=== PATIENT | male | born 1985 | race Caucasian/White ===

== ENCOUNTER 2017-06-17 21:50 | Observation (INO) | payer BC, OTHER ==
[~2017-06-17] VITALS: Ht 170.2 cm; Wt 101.1 kg
[2017-06-17] MEDS ORDERED: ONDANSETRON INJ 2 MG/ML 2 ML VIAL IV STA (22:00)
[2017-06-17] MEDS ORDERED: OPTIRAY 320 IV PRN (22:15)
[2017-06-17 22:32] LABS: BASO % 0.2 %; BASO ABS # 0.03 K/uL (0-0.2); EOS % 0.4 %; EOS ABS # 0.06 K/uL (0-0.5); HEMATOCRIT 42.5 % (42-52); HEMOGLOBIN 14.9 g/dL (14.0-18.0); IG# 0.03 K/uL (0.00-0.02); LYMPH % 7.6 %; LYMPH ABS # 1.14 K/uL (1.2-3.4); MEAN CELL VOLUME 86.6 fL (80-100); MEAN CORPUSCULAR HEMOGLOBIN 30.3 pg (25-34); MEAN CORPUSCULAR HGB CONC 35.1 g/dl (32-36); MEAN PLATELET VOLUME 9.7 fL (7.4-10.4); MONO % 7.1 %; MONO ABS # 1.07 K/uL (0.11-0.59); NEUT % 84.5 %; NEUT ABS # 12.74 K/uL (1.4-6.5); PLATELET COUNT 220 K/uL (130-400); RED CELL DISTRIBUTION WIDTH CV 12.8 % (11.5-14.5); RED CELL DISTRIBUTION WIDTH SD 40.7 fL (36.4-46.3); WHITE BLOOD COUNT 15.07 K/uL (4.8-10.8)
[2017-06-17 22:54] LABS: ALT/SGPT 30 U/L (12-78); AST/SGOT 19 U/L (15-37); BLOOD UREA NITROGEN 16 mg/dl (7-18); CALCIUM 9.4 mg/dl (8.5-10.1); CARBON DIOXIDE 27 mmol/L (21-32); CREATININE 1.04 mg/dl (0.60-1.40); GLUCOSE 100 mg/dl (70-99); POTASSIUM 3.7 mmol/L (3.5-5.1); SODIUM 138 mmol/L (136-145)
[2017-06-17 22:57] LABS: ALKALINE PHOSPHATASE 75 U/L (45-117)
[2017-06-17] MEDS ORDERED: CEFOXITIN 2000MG/60 ML D5W IV STA (23:25)
[2017-06-17] MEDS ORDERED: SODIUM CHLORIDE 0.9% 1000ML 1,000 ML IV STA (23:25)
[2017-06-18] VITALS (9 sets, daily range): BP systolic 106–129; BP diastolic 66–80; PULSE 69–86; TEMP 36.5–37.1; O2SAT 94–98; Ht 170.2 cm; Wt 101.1 kg
[2017-06-18] MEDS ORDERED: SERT-234 PO (00:08)
[2017-06-18] MEDS ORDERED: DIVA500T3 PO (00:09)
[2017-06-18] MEDS ORDERED: ONDANSETRON INJ 2 MG/ML 2 ML VIAL IV PRN ×3 (00:15→10:00)
[2017-06-18] MEDS ORDERED: HYDROmorphone INJ 1 MG/ML SYR IV PRN ×3 (00:15→08:15)
--- NOTE | 2017-06-18 00:23 | Surgery Consultation ---
Consultation Date of Consultation: Jun 18, 2017. Attending Physician: Reason for Consultation: Acute appendicitis History of Present Illness Patient is a 32 male who presented to the ED tonight due to periumbilical abdominal pain which started around 1800 tonight. His pain has since shifted to his RLQ. He also reports associated chills, but is not sure if he had a fever. Denies nausea/vomiting. He has been moving his bowels and urinating without trouble. Denies any past abdominal surgeries. FHx positive for appendicitis. He last ate today around 1700. He did take an Ibuprofen after the onset of his pain around 1830 but denies regular use of any blood thinning or anticoagulant medications. He has not experienced any pain like this in the past. WBC 15.07. CT shows a 9mm dilated appendix with appendicolith and mild inflammatory changes suggesting acute appendicitis. He denies any health problems or regular use of any medications. Social History Smoking Status: Never Smoker Allergies Coded Allergies: No Known Allergies (Unverified , 11/03/04) Home Medications Scheduled Divalproex Sodium (Depakote Er), 2 TAB PO HS Sertraline (Zoloft), 200 MG PO DAILY [Unknown], 150 MG PO QAM [Unknown], 100 MG PO QPM Current Inpatient Medications Current Inpatient Medications Medications (Trade) Dose Ordered Sig/Noble Route Start Time Stop Time Status Last Admin Dose Admin Ioversol (Optiray 320) 100 ml UD PRN IV 06/17/17 22:15 06/21/17 22:14 Sodium Chloride 1,000 ml @ 125 mls/hr Q8H STAT IV 06/17/17 23:25 06/18/17 07:24 06/17/17 23:51 125 MLS/HR Sodium Chloride 1,000 ml @ 80 mls/hr [id number] IV 06/18/17 00:15 07/18/17 00:14 UNV Ondansetron HCl (Zofran Inj) 4 mg Q6H PRN IV 06/18/17 00:15 07/18/17 00:14 Hydromorphone HCl (Dilaudid Inj) 0.5 mg Q3H PRN IV 06/18/17 00:15 07/02/17 00:14 Hydromorphone HCl (Dilaudid Inj) 1 mg Q3H PRN IV 06/18/17 00:15 07/02/17 00:14 UNV Acetaminophen 1000 mg/Empty Bag 100 ml @ 400 mls/hr Q8H IV 06/18/17 00:15 07/18/17 00:14 UNV Cefoxitin Sodium 2000 mg/Dextrose 60 ml @ 100 mls/hr Q6H IV 06/18/17 07:00 06/19/17 06:59 UNV Review of Systems Constitutional: + chills, No fever ENT: No sore throat Respiratory: No shortness of breath Cardiovascular: No chest pain Abdomen: + pain (RLQ, periumbilical), No nausea, No vomiting, No diarrhea, No constipation Genitourinary - Male: No hematuria, No dysuria Physical Exam Date Time Temp Pulse Resp B/P (MAP) Pulse Ox O2 Delivery O2 Flow Rate FiO2 06/17/17 22:42 75 20 141/89 96 Room Air 06/17/17 22:24 73 06/17/17 22:11 96 Room Air 06/17/17 21:52 36.9 98 20 151/92 96 Room Air General Appearance: WD/WN, no apparent distress Head: normocephalic, atraumatic ENT: hearing grossly normal Neck: trachea midline Respiratory/Chest: no respiratory distress, no accessory muscle use Abdomen/GI: soft, no organomegaly, no pulsatile mass, + tenderness (RLQ TTP) Neurologic/Psych: alert, normal mood/affect, oriented x 3 Skin: normal color, warm/dry Laboratory Results Last 24 Hours Test 06/17/17 22:11 White Blood Count 15.07 K/uL Red Blood Count 4.91 M/uL Hemoglobin 14.9 g/dL Hematocrit 42.5 % Mean Corpuscular Volume 86.6 fL Mean Corpuscular Hemoglobin 30.3 pg Mean Corpuscular Hemoglobin Concent 35.1 g/dl Platelet Count 220 K/uL Mean Platelet Volume 9.7 fL Neutrophils (%) (Auto) 84.5 % Lymphocytes (%) (Auto) 7.6 % Monocytes (%) (Auto) 7.1 % Eosinophils (%) (Auto) 0.4 % Basophils (%) (Auto) 0.2 % Neutrophils # (Auto) 12.74 K/uL Lymphocytes # (Auto) 1.14 K/uL Monocytes # (Auto) 1.07 K/uL Eosinophils # (Auto) 0.06 K/uL Basophils # (Auto) 0.03 K/uL RDW Standard Deviation 40.7 fL RDW Coefficient of Variation 12.8 % Immature Granulocyte % (Auto) 0.2 % Immature Granulocyte # (Auto) 0.03 K/uL Urine Color YELLOW Urine Appearance TURBID Urine pH 8.0 Urine Specific [place] 1.018 Urine Protein NEG Urine Glucose (UA) NEG Urine Ketones NEG Urine Occult Blood NEG Urine Nitrite NEG Urine Bilirubin NEG Urine Urobilinogen NEG Urine Leukocyte Esterase NEG Urine WBC (Auto) 1-5 /hpf Urine RBC (Auto) 0-4 /hpf Urine Hyaline Casts (Auto) 0 /lpf Urine Epithelial Cells (Auto) 0-5 /lpf Urine Bacteria (Auto) NEG Sodium Level 138 mmol/L Potassium Level 3.7 mmol/L Chloride Level 103 mmol/L Carbon Dioxide Level 27 mmol/L Anion Gap 8.0 mmol/L Blood Urea Nitrogen 16 mg/dl Creatinine 1.04 mg/dl Est Creatinine Clear Calc Drug Dose 117.4 ml/min Estimated GFR () 110.4 Estimated GFR (Non- 95.2 BUN/Creatinine Ratio 15.7 Random Glucose 100 mg/dl Calcium Level 9.4 mg/dl Total Bilirubin 0.3 mg/dl Direct Bilirubin < 0.1 mg/dl Aspartate Amino Transf (AST/SGOT) 19 U/L Alanine Aminotransferase (ALT/SGPT) 30 U/L Alkaline Phosphatase 75 U/L Total Protein 8.0 gm/dl Albumin 4.0 gm/dl Assessment & Plan Acute appendicitis Will plan for laparoscopic appendectomy, possible open with Dr. Hays in the OR later this morning. Risks, benefits, alternatives to the procedure were discussed - all questions answered. Admit med/surg (Obs), NPO, IV Mefoxin 2g q6h, IV fluids, pain medication PRN , Zofran PRN, SCDs. OR notified. Findings discussed with Dr. Hays. Please contact with questions or concerns.
[2017-06-18] MEDS ORDERED: IV FLUIDS COMPLETED PRN (01:00)
[2017-06-18] MEDS: ACETAMINOPHEN IV 1,000 MG in EMPTY BAG 0 ML IV SCH ×3 (01:33→17:31)
[2017-06-18] MEDS ORDERED: SODIUM CHLORIDE 0.9% 1000ML 1,000 ML IV SCH (02:00)
--- NOTE | 2017-06-18 03:59 | EMERGENCY ROOM VISIT NOTE ---
History First contact with patient: 21:55 Chief Complaint: ABDOMINAL PAIN Stated Complaint: ACUTE APPENDICITIS Nursing Triage Summary: pt reports low abdominal pain that started 3 hours ago seems to be more on the R denies radiation . denies N V, denies urinary sx History of Present Illness The patient is a 32 year old male who presents to the Emergency Room with complaints of right lower quadrant pain for the past few hours that is steadily getting worse described as aching, ranging severity 6 out of 10 with nausea. Nothing makes it better or worse. It does not radiate. Patient denies chest pain, dyspnea, fever, chills, vomiting, diarrhea, back pain, flank pain, urinary symptoms, testicular pain, penile pain. Review of Systems An 10 system review of systems was completed with positives and pertinent negatives listed in the HPI. Past Medical/Surgical History Medical Problems: (1) Acute appendicitis PTSD, anxiety Social History Smoking Status: Never Smoker Current/Historical Medications Scheduled Divalproex Sodium (Depakote Er), 2 TAB PO HS Sertraline (Zoloft), 200 MG PO DAILY [Unknown], 150 MG PO QAM [Unknown], 100 MG PO QPM Physical Exam Vital Signs Date Time Temp Pulse Resp B/P (MAP) Pulse Ox O2 Delivery O2 Flow Rate FiO2 06/18/17 00:03 124/75 06/17/17 23:00 73 06/17/17 22:42 75 20 141/89 96 Room Air 06/17/17 22:24 73 06/17/17 22:11 96 Room Air 06/17/17 21:52 36.9 98 20 151/92 96 Room Air Physical Exam VITALS: Vitals are noted on the nurse's note and reviewed by myself. Vital signs stable. GENERAL: Pleasant male, in no acute distress, nondiaphoretic, well-developed well-nourished. SKIN: The skin was without rashes, erythema, edema, or bruising. There is no tenting of the skin. Capillary reflex less than 2 seconds. HEAD: Normocephalic atraumatic. EARS: External auditory canals clear, tympanic membranes pearly whitfield without erythema or effusion bilaterally. EYES: Pupils equal round and reactive to light and accommodation. Conjunctivae without injection, sclerae without icterus. Extraocular movements intact. NOSE: Patent, turbinates without inflammation or discharge. MOUTH: Mucous membranes moist. Pharynx without erythema or exudate. Uvula midline. Airway patent. Tongue does not deviate. NECK: Supple without nuchal rigidity. No lymphadenopathy. No thyromegaly. Cervical spine is nontender. No JVD. HEART: Regular rate and rhythm without murmurs gallops or rubs. LUNGS: Clear to auscultation bilaterally without wheezes, rales or rhonchi. No retractions or accessory muscle use. ABDOMEN: Positive bowel sounds x 4. Normal tympanic percussion. Soft, tender to palpation right lower quadrant, no CVA tenderness, without masses or organomegaly. Villagomez sign negative. No guarding or rebound tenderness. No CVA tenderness MUSCULOSKELETAL: No muscle atrophy, erythema, or edema noted. NEURO: Patient was alert and oriented to person place and time. Normal sensation to light and sharp touch. No focal neurological deficits. Medical Decision & Procedures Laboratory Results 06/17/17 22:11 Red Blood Count 4.91, Mean Corpuscular Volume 86.6, Mean Corpuscular Hemoglobin 30.3, Mean Corpuscular Hemoglobin Concent 35.1, Mean Platelet Volume 9.7, Neutrophils (%) (Auto) 84.5, Lymphocytes (%) (Auto) 7.6, Monocytes (%) (Auto) 7.1, Eosinophils (%) (Auto) 0.4, Basophils (%) (Auto) 0.2, Neutrophils # (Auto) 12.74, Lymphocytes # (Auto) 1.14, Monocytes # (Auto) 1.07, Eosinophils # (Auto) 0.06, Basophils # (Auto) 0.03 06/17/17 22:11 Test 06/17/17 22:11 White Blood Count 15.07 K/uL (4.8-10.8) Red Blood Count 4.91 M/uL (4.7-6.1) Hemoglobin 14.9 g/dL (14.0-18.0) Hematocrit 42.5 % (42-52) Mean Corpuscular Volume 86.6 fL (80-100) Mean Corpuscular Hemoglobin 30.3 pg (25-34) Mean Corpuscular Hemoglobin Concent 35.1 g/dl (32-36) Platelet Count 220 K/uL (130-400) Mean Platelet Volume 9.7 fL (7.4-10.4) Neutrophils (%) (Auto) 84.5 % Lymphocytes (%) (Auto) 7.6 % Monocytes (%) (Auto) 7.1 % Eosinophils (%) (Auto) 0.4 % Basophils (%) (Auto) 0.2 % Neutrophils # (Auto) 12.74 K/uL (1.4-6.5) Lymphocytes # (Auto) 1.14 K/uL (1.2-3.4) Monocytes # (Auto) 1.07 K/uL (0.11-0.59) Eosinophils # (Auto) 0.06 K/uL (0-0.5) Basophils # (Auto) 0.03 K/uL (0-0.2) RDW Standard Deviation 40.7 fL (36.4-46.3) RDW Coefficient of Variation 12.8 % (11.5-14.5) Immature Granulocyte % (Auto) 0.2 % Immature Granulocyte # (Auto) 0.03 K/uL (0.00-0.02) Urine Color YELLOW Urine Appearance TURBID (CLEAR) Urine pH 8.0 (4.5-7.5) Urine Specific [place] 1.018 (1.000-1.030) Urine Protein NEG (NEG) Urine Glucose (UA) NEG (NEG) Urine Ketones NEG (NEG) Urine Occult Blood NEG (NEG) Urine Nitrite NEG (NEG) Urine Bilirubin NEG (NEG) Urine Urobilinogen NEG (NEG) Urine Leukocyte Esterase NEG (NEG) Urine WBC (Auto) 1-5 /hpf (0-5) Urine RBC (Auto) 0-4 /hpf (0-4) Urine Hyaline Casts (Auto) 0 /lpf (0-5) Urine Epithelial Cells (Auto) 0-5 /lpf (0-5) Urine Bacteria (Auto) NEG (NEG) Anion Gap 8.0 mmol/L (3-11) Est Creatinine Clear Calc Drug Dose 117.4 ml/min Estimated GFR () 110.4 Estimated GFR (Non- 95.2 BUN/Creatinine Ratio 15.7 (10-20) Calcium Level 9.4 mg/dl (8.5-10.1) Total Bilirubin 0.3 mg/dl (0.2-1) Direct Bilirubin < 0.1 mg/dl (0-0.2) Aspartate Amino Transf (AST/SGOT) 19 U/L (15-37) Alanine Aminotransferase (ALT/SGPT) 30 U/L (12-78) Alkaline Phosphatase 75 U/L (45-117) Total Protein 8.0 gm/dl (6.4-8.2) Albumin 4.0 gm/dl (3.4-5.0) Medications Administered Medications (Trade) Dose Ordered Sig/Noble Route Start Time Stop Time Status Last Admin Dose Admin Ondansetron HCl (Zofran Inj) 4 mg NOW STAT IV 06/17/17 22:00 06/17/17 22:01 DC 06/17/17 22:15 4 MG Cefoxitin Sodium (Mefoxin 2000mg/ 60 ml D5W) 2,000 mg NOW STAT IV 06/17/17 23:25 06/17/17 23:26 DC 06/17/17 23:51 2,000 MG Sodium Chloride 1,000 ml @ 125 mls/hr Q8H STAT IV 06/17/17 23:25 06/18/17 01:07 DC 06/17/17 23:51 125 MLS/HR ED Course Prior records/ancillary studies reviewed. Triage Nursing notes reviewed. The patient's history was concerning for abdominal pain. Differential diagnosis: Etiologies such as appendicitis, diverticulitis, PUD, biliary pathology, UTI, pancreatitis, obstruction, mesenteric ischemia, aortic pathology, infections, inflammatory bowel disease, renal colic, as well as others were entertained. Physical examination findings: As above. ER treatment provided: Zofran, IV fluids, Mefoxin On reassessment the patient felt better. Diagnostics interpreted by me: The labs revealed leukocytosis Imaging studies: CT concerning for acute appendicitis Consultation: A consultation was placed with the surgical PAFranko. The case was discussed and diagnostics were reviewed. The patient was evaluated in the ER for further treatment. Exam and history seem consistent with acute appendicitis. Patient was started on antibiotics. He was placed n.p.o. He will be evaluated by surgery and he was admitted to their service. Patient agrees to treatment plan of admission to surgical service.By the evaluation outlined above emergent etiologies such as diverticulitis, PUD, biliary pathology, UTI, pancreatitis, obstruction, mesenteric ischemia, aortic pathology, inflammatory bowel disease, renal colic, as well as others were deemed relatively unlikely. The pt informed about the findings as listed above. All questions were answered and pleased with the treatment. Case reviewed with my attending The chart was completed utilizing [employer] Speech voice recognition software. Grammatical errors, random word insertions, pronoun errors, and incomplete sentences are an occassional consequence of this system due to software limitations, ambient noise, and hardware issues. Any formal questions or concerns about the content, text, or information contained within the body of this dictation should be directly addressed to the physician library assistant for clarification. Medical Decision As above Medication Reconcilliation Current Medication List: was personally reviewed by me Blood Pressure Screening Patient's blood pressure: Normal blood pressure Impression Primary Impression: Acute appendicitis Departure Information Dispostion Still a Patient Condition FAIR Referrals No Doctor, Assigned (PCP) Forms Call Back Authorization, HOME CARE DOCUMENTATION FORM, IMPORTANT VISIT INFORMATION Patient Instructions [facility] Problem Qualifiers Primary Impression: Acute appendicitis Acute appendicitis type: with localized peritonitis Qualified Codes: K35.3 - Acute appendicitis with localized peritonitis
[2017-06-18] MEDS: CEFOXITIN IV 2,000 MG in DEXTROSE 5% 50ML 50 ML IV SCH ×3 (06:32→18:40)
--- NOTE | 2017-06-18 06:57 | DIAGNOSTIC IMAGING REPORT ---
CT ABD/PELVIS IV CONTRAST ONLY CLINICAL HISTORY: Right lower quadrant abdominal pain COMPARISON STUDY: None. TECHNIQUE: Following the IV administration of 93 mL of Optiray-320, CT scan of the abdomen and pelvis was performed from the lung bases to the proximal femurs. Images are reviewed in the axial, sagittal, and coronal planes. IV contrast was administered without complication. A dose lowering technique was utilized adhering to the principles of ALARA. CT DOSE: 819.50 mGy.cm FINDINGS: Lower chest: There are minimal dependent atelectatic changes Liver: There is minor hepatic steatosis. No focal masses are visualized. Gallbladder: Contracted Spleen: Normal in size and attenuation. Pancreas: Unremarkable. Adrenal glands: Unremarkable. Kidneys: There are multiple right renal hypodensities, the largest of which measures 23 mm. These slightly exceed water attenuation. They are therefore indeterminate, although likely they represent slightly hyperdense cysts. There is an area of cortical scarring involving the medial aspect of the midpole the left kidney. There is a punctate calcification present. There is an associated 14 mm hypodensity which again exceeds water attenuation. There is a 4 mm lower pole right renal calculus. There is a to small to characterize 4 mm hypodensity within the lower pole the left kidney. There is no hydronephrosis. Bowel: There are no transition zones indicate bowel obstruction. The appendix is mildly dilated measuring 9 mm. It contains inspissated radiopaque material. There is mild periappendiceal stranding. The findings are indicative of early acute appendicitis. There are no transition zones indicate bowel obstruction. There is no evidence of acute diverticulitis. Peritoneum: There is no intraperitoneal free air or abdominal ascites. Vasculature: The abdominal aorta is normal in course and caliber. Adenopathy: There are mildly prominent mesenteric lymph nodes, likely reactive Pelvic viscera: The bladder, and pelvic viscera are unremarkable. Skeletal structures: No destructive osseous lesions are seen. IMPRESSION: 1. Mildly dilated fluid-filled appendix with periappendiceal stranding. The findings are indicative of an early acute appendicitis. Surgical consultation is recommended. 2. No evidence of bowel obstruction. No evidence of free air 3. Right-sided nephrolithiasis 4. Multiple right renal hypodensities which slightly exceed water attenuation. Nonemergent ultrasonography could be obtained in follow-up. Electronically signed by: Rodrick Vallejo M.D. 06/18/2017 6:56 AM Dictated Date/Time: 06/18/2017 6:49 AM
--- NOTE | 2017-06-18 07:48 | History & Physical Bridge Note ---
H&P Re-Evaluation Bridge Note: I have examined the patient, reviewed the History & Physical and in the interval since the performance of the History & Physical I have noted the following changes of clinical significance: No changes noted
[2017-06-18] MEDS ORDERED: FENTANYL CITRATE INJ 50 MCG/1 ML 2 ML VIAL ONE (07:55)
[2017-06-18] MEDS ORDERED: MIDAZOLAM HCL 1 MG/ML 2ML VIAL ONE (07:55)
[2017-06-18] MEDS ORDERED: MEPERIDINE HCL 25 MG/ML CARP IV PRN (08:15)
[2017-06-18] MEDS ORDERED: ATROPINE SULFATE 0.1 MG/ML 5ML SYR IV PRN (08:15)
[2017-06-18] MEDS ORDERED: FENTANYL CITRATE INJ 50 MCG/1 ML 2 ML VIAL IV PRN (08:15)
[2017-06-18] MEDS ORDERED: LABETALOL HCL IV 5 MG/ML 20ML IV PRN (08:15)
[2017-06-18] MEDS ORDERED: EpHEDrine SULFATE INJ 50 MG/ML AMP IV PRN (08:15)
[2017-06-18] MEDS ORDERED: ACETAMINOPHEN 1000 MG/100 ML IV IV ONE (08:32)
[2017-06-18] MEDS ORDERED: BUPIVACAINE 0.5 % 5 MG/1 ML MPF 30ML VIAL ONE (08:35)
[2017-06-18] MEDS ORDERED: GLYCOPYRROLATE INJ 0.2 MG/ML VIAL ONE (09:24)
[2017-06-18] MEDS ORDERED: PROPOFOL IV EMULSION 10 MG/ML 20 ML VIAL IV ONE (09:24)
[2017-06-18] MEDS ORDERED: ONDANSETRON INJ 2 MG/ML 2 ML VIAL ONE (09:24)
[2017-06-18] MEDS ORDERED: DEXAMETHASONE SOD INJ 4 MG/ML VIAL ONE (09:24)
[2017-06-18] MEDS ORDERED: ROCURONIUM BROMIDE 10 MG/ML 5 ML VIAL IV ONE ×2 (09:24→09:34)
[2017-06-18] MEDS ORDERED: NEOSTIGMINE METHYLSULFATE 5 MG/5 ML SYR ONE (09:24)
--- NOTE | 2017-06-18 09:33 | [facility] Post Operative Brief Note ---
Immediate Operative Summary Operative Date Jun 18, 2017. Pre-Operative Diagnosis Acute appendicitis Post-Operative Diagnosis Same Procedure(s) Performed Laparoscopic Appendectomy Surgeon Dr Hays Global Coordinator Surgeon(s) Vicky Beard PA-C Estimated Blood Loss 4ml Findings Consistent with Post-Op Diagnosis non perforated appendicitis Specimens A. appendix Drains None Anesthesia Type General Complication(s) none Disposition Accompanied Pt To Recover: no Disposition: Recovery Room / PACU
[2017-06-18] MEDS ORDERED: KETOROLAC TROMETHAMINE 30 MG/ML VIAL ONE (09:34)
--- NOTE | 2017-06-18 09:38 | [facility] Operative Report ---
Operative Report Operative Date Jun 18, 2017. Pre-Operative Diagnosis Acute appendicitis Post-Operative Diagnosis acute appendicitis Procedure(s) Performed laparoscopic appendectomy Surgeon Dr Hays Glassware Defect Repairer Surgeon(s) Vicky Baerd PA-C Estimated Blood Loss 4ml Findings acute, suppurative, non perforated appendicitis Specimens A. appendix Drains none Anesthesia GETA Complication(s) None Disposition Recovery Room / PACU Indications 32 year old male with acute appendicitis, plan for laparoscopic appendectomy. The risks were reviewed, all questions answered, patient agreed to proceed with surgery as planned. Description of Procedure The patient was properly identified, consented, and taken to the operating room where he was placed in the supine position. General endotracheal anesthesia was induced. SCDs and a safety belt were placed. Preoperative antibiotics were administered. A Iverson catheter was not placed. The patient's abdomen was prepped and draped in the standard sterile fashion. Surgical timeout was performed and all parties were in agreement that this was the correct patient and procedure to be performed and we continued as planned. A curvilinear infraumbilical incision was made with electrocautery and deepened down to the fascia with blunt dissection. The base of the umbilicus was grasped with a Henna and elevated towards the ceiling. An incision was made in the midline fascia with a knife and entry into the peritoneum was confirmed. Stay suture of 0 Vicryl was placed and a Stout trocar was inserted. The abdomen was insufflated with carbon dioxide which the patient tolerated without incident. The laparoscope was inserted and no damage from initial trocar placement was noted, no gross abnormalities were noted within the 4 quadrants the abdomen. 5 mm ports were then placed in the left lower quadrant with care not to damage the epigastric vessels, and in the suprapubic midline with care not to damage the bladder. The patient was placed in Trendelenburg position and rotated towards the left. The small bowel was swept away from the right lower quadrant. The cecum was grasped with an atraumatic grasper exposing the appendix. The appendix was mildly inflamed and there was no evidence of perforation. There was a small amount of turbid fluid in the pelvis. A window was created between the base of the appendix and the mesoappendix. A blackman loaded endoscopic stapler was then used to divide the appendix at its base. A blackman load was then used to divide the mesoappendix. Hemostasis was good. The appendix was placed in an Endo Catch bag and removed through the umbilical port site. The right lower quadrant and pelvis was irrigated and hemostasis was found to be good. 5 mm trochars were removed under direct visualization and the abdomen was allowed to collapse. The umbilical port site fascia was closed with 0 Vicryl suture. The wound was irrigated, and the skin of all ports was closed with 4-0 Monocryl subcuticular sutures. Dermabond was placed over the wounds. The patient was extubated in the operating room and taken to the PACU where he recovered without apparent incident. All sponge, instrument and needle counts were correct at the conclusion of the procedure. The patient tolerated the procedure well. The physician's language assistant was present and scrubbed for the entirety of the case. She was essential in positioning the patient, prepping and draping, entry into the abdomen, retraction and exposure, controlling the laparoscopic, closure of the incisions, and placement of the dressings. I attest to the content of the Intraoperative Record and any orders documented therein. Any exceptions are noted below.
[2017-06-18] MEDS ORDERED: LACTATED RINGER'S 1000ML 1,000 ML IV SCH (09:48)
[2017-06-18] MEDS ORDERED: OXYC-57 PO (09:52)
--- NOTE | 2017-06-18 09:54 | Discharge Instructions ---
Discharge Instructions Date of Service Jun 18, 2017. Admission Reason for Admission: Acute Appendicitis Discharge Discharge Diagnosis / Problem: Acute Appendicitis Discharge Goals Goal(s): Decrease discomfort, Improve function Activity Recommendations Activity Limitations: as noted below Lifting Limitations: no more than 10 pounds Exercise/Sports Limitations: until after follow-up appointment May Resume Sexual Activity: after follow-up appointment Shower/Bathe: tomorrow Driving or Machine Use: resume 3 days after discharge . Instructions / Follow-Up Instructions / Follow-Up You have Dermabond, surgical glue, over your incisions. You may shower tomorrow , but please do not soak or scrub your incisions. Please follow-up with Dr. Hays in the General Surgery Clinic located at [address] [place] [address] [place], [place] in 1 week. Please call the office at to make this appointment. Please call the office with any questions or concerns. Current Hospital Diet Patient's current hospital diet: Clear Liquid Diet Discharge Diet Recommended Diet: Regular Diet Procedures Procedures Performed: Laparoscopic Appendectomy Pending Studies Studies pending at discharge: yes List of pending studies: Pathology report. Medical Emergencies . Who to Call and When: Medical Emergencies: If at any time you feel your situation is an emergency, please call 911 immediately. . Non-Emergent Contact Non-Emergency issues call your: Primary Care Provider, Surgeon Call Non-Emergent contact if: temperature is above 101.5, your pain is not controlled, wound has increased drainage, wound has increased redness . "Provider Documentation" section prepared by Vicky Beard. .
[2017-06-18] MEDS ORDERED: MoRPHine SULFATE 2 MG/ML CARP IV PRN ×3 (10:00)
[2017-06-18] MEDS ORDERED: OXYCODONE/ACETAMINOPHEN 5-325 TAB PO PRN ×2 (10:00)
--- NOTE | 2017-06-18 10:39 | Anesthesiology Progress Note ---
Anesthesia Post Op Note Date & Time Jun 18, 2017 at 10:38 Vital Signs Pain Intensity: 0 Vital Signs Past 12 Hours Date Time Temp Pulse Resp B/P (MAP) Pulse Ox O2 Delivery O2 Flow Rate FiO2 06/18/17 10:32 37.4 96 Nasal Cannula 2 06/18/17 10:28 73 16 06/18/17 10:28 74 16 96 06/18/17 10:26 118/68 06/18/17 10:23 69 16 06/18/17 10:23 69 16 98 06/18/17 10:21 120/70 06/18/17 10:18 73 16 06/18/17 10:18 72 16 90 06/18/17 10:17 74 24 06/18/17 10:17 74 24 96 06/18/17 10:16 117/67 06/18/17 10:12 74 19 93 06/18/17 10:12 74 19 06/18/17 10:11 124/65 06/18/17 10:07 73 20 06/18/17 10:07 73 20 99 06/18/17 10:06 117/66 06/18/17 10:03 77 17 100 06/18/17 10:03 77 17 06/18/17 10:01 120/67 06/18/17 09:58 84 19 100 06/18/17 09:58 84 19 06/18/17 09:56 121/65 06/18/17 09:54 131/72 06/18/17 09:53 36.9 88 12 131/72 100 Oxymask 10 06/18/17 09:53 86 98 06/18/17 09:53 86 06/18/17 07:49 Room Air 06/18/17 07:01 36.8 71 16 129/80 (96) 94 Room Air 06/18/17 01:00 37.1 69 16 126/75 96 Room Air 06/18/17 01:00 Room Air 06/18/17 00:31 123/72 06/18/17 00:30 72 21 96 06/18/17 00:03 124/75 06/17/17 23:00 73 06/17/17 22:42 75 20 141/89 96 Room Air Notes Mental Status: alert / awake / arousable, participated in evaluation Pt Amnestic to Procedure: Yes Nausea / Vomiting: adequately controlled Pain: adequately controlled Airway Patency, RR, SpO2: stable & adequate BP & HR: stable & adequate Hydration State: stable & adequate Anesthetic Complications: no major complications apparent
[2017-06-18] MEDS ORDERED: DIVALPROEX 500 MG EXTENDED RELEASE TAB PO SCH (21:00)
[2017-06-19] MEDS ORDERED: SERTRALINE HCL 100 MG TAB PO SCH (09:00)
== END 2017-06-18 20:03 | disposition home or self-care (01) ==
LOC: C.EDB 21:51 → C.MSN 06-18 00:04 → ENRESERV 06-18 00:14
PROVIDERS: ADMIT Surgery; ATTEND Surgery
DX: K35.80 Unspecified acute appendicitis (principal); F43.10 Post-traumatic stress disorder, unspecified; F41.9 Anxiety disorder, unspecified; Z79.899 Other long term (current) drug therapy; K35.3 Acute appendicitis with localized peritonitis